=== PATIENT | male | born 1960 | race Caucasian/White ===

== ENCOUNTER 2017-08-07 07:32 | Inpatient (IN) | payer OTHER ==
[~2017-08-07] VITALS: Ht 180.3 cm; Wt 91.1 kg
--- NOTE | ~2017-08-07 | S ---
[facility] [place] [address] SURGICAL PATH RPT PROCEDURE Name: NATIVIDAD MORIN Room #: 444-P DIS IN M.R.#: [id number] Admission: 08/07/17 Date of : 64 Discharge: 08/11/17 Report #: [id number] Path Case #: [id number] PATHOLOGY REPORT COLLECTION DATE: 08/09/2017 RECEIVED DATE: 08/09/2017 SUBMITTING PHYS: Dr. Zac Anaya OTHER PHYS: Camilo Vickers Dr. SPECIMEN(S) RECEIVED: A.Gallbladder * * * * * * * * * * * * FINAL DIAGNOSIS: "Gallbladder," cholecystectomy: - Chronic cholecystitis. (CLW:mgr; 08/12/2017) PATHOLOGIST: Sonja Gonzalez M.D. REPORT ELECTRONICALLY SIGNED BY: Sonja Gnozalez M.D. DATE/TIME: 08/12/2017 14:25 * * * * * * * * * * * * GROSS PATHOLOGY: Received in formalin labeled "Natividad Morin and gallbladder," is a previously opened 6.7 x 2.4 x 1.0 cm, gallbladder with meadows smooth serosal surfaces. Opening the gallbladder reveals granular mucosa and an average wall thickness of up to 0.1 cm. Calculi not present and no masses are noted grossly. X Ray Technician sections from the body and fundus are submitted along with the proximal margin in cassette A1. (SWS; 08/09/2017) CLINICAL HISTORY: Gallbladder disease INITIAL CPT CODE(S): A; 24823 Professional services performed by [facility] at [facility] [address], [place] [address] Technical services performed by [facility] at [address] [place] [id number]. [facility] [address] [place] [address] SURGICAL PATH RPT PROCEDURE Name: NATIVIDAD MORIN Room #: 444-P [facility] IN .R.#: [id number] Admission: 08/07/17 Date of : 64 Discharge: 08/11/17 Report #: [id number] Path Case #: [id number] [facility] [address] [address] PHONE: [phone] DIRECTOR: Nabeel Ramsay M.D. * * * END OF REPORT * * *
--- NOTE | ~2017-08-07 | HC ---
[facility] [place] [address] CONSULTATION Name: NATIVIDAD LIAO Room #: 444-P ADM IN M.R.#: [id number] Admission: 08/07/17 Attend Phys: Vincent Diaz MD Discharge: Date of : 64 Report #: [id number] THIS REPORT FOR: //name// CC: Vincent Anaya DATE OF SERVICE: 08/07/2017 ATTENDING PHYSICIAN: Vincent Diaz MD CONSULTING PHYSICIAN: Zac Anaya MD REASON FOR CONSULTATION: Abdominal pain. HISTORY OF PRESENT ILLNESS: This is a 57-year-old male patient who was seen in the [place] emergency room with abdominal pain, nausea, vomiting and diarrhea. He had eaten pizza last night. He reports having had similar symptoms last week postprandially with bloating, diarrhea, nausea, vomiting, pain and "long belches." His symptoms last a couple days at the end of last week and improved; however, he has been eating soup since that time. After eating the pizza last night, his symptoms came back. He reports chills after he has episodes of nausea, vomiting, and diarrhea. He denies any sick contacts. PAST MEDICAL HISTORY: Significant for supraventricular tachycardia, hypertension, hyperlipidemia, asthma, and history of DVT. PAST SURGICAL HISTORY: Cardiac cath; denies abdominal operations. MEDICATIONS: Please see hospital chart for details. He takes omeprazole, Elavil, Cialis, Ventolin inhaler, aspirin, and Felicitas. ALLERGIES: ATORVASTATIN causes muscle pain. FAMILY HISTORY: Reviewed and noncontributory to this hospitalization. His father had a heart disease and sister has breast cancer. SOCIAL HISTORY: The patient denies use of tobacco or illicit drugs. He drinks alcohol on occasion. He works as a heating and cooling assistant facility manager and is accompanied by his . REVIEW OF SYSTEMS: As per history of present illness, in addition, GENERAL: The patient denies unintentional weight loss. Denies fever. Reports chills. HEENT: Denies changes in taste, vision, hearing, or smell. RESPIRATORY: Denies shortness of breath or COPD and has a history of asthma. [facility] [address] [place] [address] CONSULTATION Name: NATIVIDAD LIAO Room #: 444-P [facility] IN ..#: [id number] Admission: 08/07/17 Attend Phys: Vincent Diaz MD Discharge: Date of : 64 Report #: [id number] CARDIOVASCULAR: Denies chest pain or palpitations. GASTROINTESTINAL: As per history of present illness. Complains of abdominal cramping. GENITOURINARY: Denies dysuria, urgency, increased urinary frequency, or hematuria. MUSCULOSKELETAL: Denies myalgia, arthralgia or arthritis. NEUROLOGIC: Denies headaches, numbness, or tingling. PSYCHIATRIC: Denies depression, anxiety, or suicidal ideations. SKIN AND INTEGUMENTARY: Denies new skin lesions, rashes, or moles. ENDOCRINE: Denies polydipsia, polyuria, heat or cold intolerance. HEMATOLOGIC: Denies easy bleeding, bruising or anemia. All other review of systems is negative. PHYSICAL EXAMINATION: VITAL SIGNS: Temperature 98.3, blood pressure 149/97, pulse 103, and respirations 18. GENERAL: This is a 57-year-old male patient, in no acute distress, although he appears uncomfortable. HEENT: Atraumatic, normocephalic with moist mucosal membranes. Oropharynx is clear. He has no scleral icterus. NECK: Supple, no appreciable lymphadenopathy. Trachea is midline. CHEST: Clear bilaterally. No crackles or wheezes. CARDIOVASCULAR: Regular rate and rhythm. ABDOMEN: Soft, but diffusely tender to palpation with no rebound or guarding. His abdomen is distended. He has no palpable masses, no appreciable hernias. No incisional scars. GENITOURINARY: Normal external male genitalia. EXTREMITIES: No clubbing, cyanosis or edema. NEUROLOGIC: Cranial nerves 2-12 are grossly intact. PSYCHIATRIC: Normal mood and affect. SKIN AND INTEGUMENTARY: No acute inflammatory changes, rashes or lesions are present. LABORATORY DATA: CBC from this morning shows a white blood cell count of 14.1, hemoglobin 15.9, hematocrit 47.2 and platelets 329 with 84% segmented neutrophils. Electrolytes showed a sodium of 138, potassium 4.0, chloride 102, CO2 of 24, BUN 20, creatinine 1.1 and glucose 169 with normal liver function tests and a normal lipase. RADIOLOGIC STUDIES: Three-view KUB upright and AP of the chest showed fluid scattered throughout bowel consistent with ileus or enteritis. This was followed by a CT of the abdomen and pelvis with contrast. This showed changes consistent with intussusception on axial images; however, sagittal and coronal reconstructions could not confirm this. This was followed by a small-bowel series, which showed no evidence of small-bowel obstruction or definite [facility] [address] [place] [address] CONSULTATION Name: NATIVIDAD LIAO Room #: 444-P ADM IN M.R.#: [id number] Admission: 08/07/17 Attend Phys: Vincent Diaz MD Discharge: Date of : 64 Report #: [id number] intussusception. There was some delay in the passage of contrast into the mid to distal small bowel. IMPRESSION AND PLAN: This is a 57-year-old male patient with no previous abdominal surgical history who had an incidentally seen intussusception coinciding with an area where the abdominal pain is present. His followup x-rays showed no evidence for this. We discussed the pathophysiology and natural history of intussusception in adults as well as possible small-bowel obstruction. We also discussed the workup, treatment alternatives, and surgical options. The patient would benefit from decompression as he remains nauseated and has been vomiting. He will undergo an abdominal ultrasound to further evaluate his gallbladder as he has a history of chronic postprandial abdominal pain, nausea and vomiting while decompressed, but before the CT of the abdomen and pelvis with oral and IV contrast. Should he fail to resolve his symptoms, he may benefit from a diagnostic laparoscopy. This could also certainly represent delayed gastroenteritis or ileitis. Hopefully, his symptoms will resolve with decompression and bowel rest. The patient expressed understanding of the plan. I sincerely appreciate the opportunity to participate in the care of this patient and we will leave further recommendations and orders in the electronic medical record as appropriate. Thank you very much. <ELECTRONICALLY SIGNED> By: Zac Anaya MD, FACS 08/08/17 0821 1743 27 Zac Anaya MD, FACS /nt
[~2017-08-07 07:32] MED LIST: ALLEGRA ALLERG180 MG PO; AMITRIPTYLINE H25 M2 PO; ASPIR 8181 MG PO; AZELASTINE137 MCG/0. NASAL; BENAZEPRIL 10 M10 MG PO; CARTIA XT120 M1 PO; CIALIS20 MG PO; FENOFIBRATE160 MG PO; FLECAINIDE ACET50 M2 PO; OMEPRAZOLE40 MG PO; SUDAFED 12 HOU120 MG PO; VENTOLIN HFA 1818 GM INH; ZOCOR20 MG PO
[2017-08-07 07:33] VITALS: BP 123/89
[2017-08-07 07:58] LABS: HEMATOCRIT 47.2 % (42.0-52.0); HEMOGLOBIN 15.9 gm/dL (14.0-18.0); MCH 28.6 pg (26.0-34.0); MCHC 33.7 g/dL (28.0-37.0); MCV 84.9 fL (80.0-100.0); PLATELET COUNT 329 thou/uL (150-400); RBC 5.56 mil/uL (4.50-6.00); RDW 13.8 % (10.5-14.5); WBC 14.1 thou/uL (4.0-11.0)
[2017-08-07 07:59] LABS: MANUAL DIFF YES
[2017-08-07 08:06] LABS: CALCIUM 9.5 mg/dL (8.5-10.1); CREATININE 1.1 mg/dL (0.7-1.3)
[2017-08-07 08:11] LABS: ALBUMIN 4.3 g/dL (3.4-5.0); TOTAL BILIRUBIN 0.7 mg/dL (<0.1-1.0); TOTAL PROTEIN 7.9 g/dL (6.4-8.2)
[2017-08-07 08:58] LABS: ABSOLUTE NEUTROPHILS 11.8 thou/uL (1.4-8.2); TOTAL CELL COUNT 100
[2017-08-07 08:59] LABS: ANISOCYTOSIS SLIGHT
[2017-08-07 11:50] VITALS: BP 143/86
[2017-08-07 12:35] VITALS: BP 134/93
[2017-08-07 13:10] VITALS: BP 149/97
[2017-08-07 16:00] VITALS: BP 154/89
[2017-08-07 20:13] VITALS: BP 138/90
[2017-08-08 01:10] LABS: GLYCOHEMOGLOBIN (HGB A1C) 5.9 % (4.8-5.6)
[2017-08-08 03:53] VITALS: BP 106/65
[2017-08-08 03:54] LABS: CALCIUM 8.7 mg/dL (8.5-10.1); CREATININE 1.2 mg/dL (0.7-1.3); MAGNESIUM 1.9 mg/dL (1.8-2.4); POTASSIUM 3.8 mmol/L (3.5-5.1)
[2017-08-08 03:55] LABS: ABSOLUTE NEUTROPHILS 5.1 thou/uL (1.4-8.2); BASOPHILS 0.2 % (0.0-2.0); HEMATOCRIT 43.2 % (42.0-52.0); HEMOGLOBIN 14.4 gm/dL (14.0-18.0); LYMPHOCYTES 26.5 % (24.0-44.0); MCH 28.9 pg (26.0-34.0); MCHC 33.5 g/dL (28.0-37.0); MCV 86.2 fL (80.0-100.0); MONOCYTES 11.9 % (1.0-8.0); PLATELET COUNT 318 thou/uL (150-400); POLYS 54.4 % (36.0-66.0); RBC 5.01 mil/uL (4.50-6.00); RDW 14.1 % (10.5-14.5); WBC 9.3 thou/uL (4.0-11.0)
[2017-08-08 04:07] LABS: MANUAL DIFF NO
[2017-08-08 05:13] VITALS: BP 124/79
[2017-08-08 08:00] VITALS: BP 118/73
[2017-08-08 16:00] VITALS: BP 135/97
[2017-08-08 19:38] VITALS: BP 128/80
[2017-08-09 00:10] VITALS: BP 127/75
[2017-08-09 05:42] VITALS: BP 128/73
[2017-08-09 18:34] VITALS: BP 140/85
[2017-08-09 19:00] VITALS: BP 141/91
[2017-08-10 05:11] VITALS: BP 129/78
[2017-08-10 05:59] LABS: CALCIUM 8.5 mg/dL (8.5-10.1); CREATININE 1.1 mg/dL (0.7-1.3); POTASSIUM 3.5 mmol/L (3.5-5.1)
[2017-08-10 06:07] LABS: ABSOLUTE NEUTROPHILS 7.6 thou/uL (1.4-8.2); BASOPHILS 0.3 % (0.0-2.0); EOSINOPHILS 1.8 % (0.0-3.0); HEMATOCRIT 39.5 % (42.0-52.0); LYMPHOCYTES 15.7 % (24.0-44.0); MCH 28.6 pg (26.0-34.0); MCHC 32.9 g/dL (28.0-37.0); MCV 86.9 fL (80.0-100.0); MONOCYTES 8.9 % (1.0-8.0); PLATELET COUNT 275 thou/uL (150-400); POLYS 73.3 % (36.0-66.0); RBC 4.55 mil/uL (4.50-6.00); WBC 10.4 thou/uL (4.0-11.0)
[2017-08-10 06:17] LABS: MANUAL DIFF NO
[2017-08-10 08:00] VITALS: BP 149/84
[2017-08-10 16:00] VITALS: BP 136/79
[2017-08-10 20:12] VITALS: BP 104/61
[2017-08-11 03:31] VITALS: BP 126/83
[2017-08-11 05:51] LABS: ABSOLUTE NEUTROPHILS 5.6 thou/uL (1.4-8.2); BASOPHILS 0.6 % (0.0-2.0); EOSINOPHILS 6.5 % (0.0-3.0); HEMATOCRIT 35.4 % (42.0-52.0); HEMOGLOBIN 11.7 gm/dL (14.0-18.0); LYMPHOCYTES 19.1 % (24.0-44.0); MCH 28.3 pg (26.0-34.0); MCHC 32.9 g/dL (28.0-37.0); MONOCYTES 8.2 % (1.0-8.0); PLATELET COUNT 246 thou/uL (150-400); POLYS 65.6 % (36.0-66.0); RBC 4.11 mil/uL (4.50-6.00); RDW 13.8 % (10.5-14.5); WBC 8.6 thou/uL (4.0-11.0)
[2017-08-11 05:54] LABS: MANUAL DIFF NO
[2017-08-11 06:06] LABS: CALCIUM 8.3 mg/dL (8.5-10.1); POTASSIUM 3.1 mmol/L (3.5-5.1)
[2017-08-11 08:00] VITALS: BP 134/74
[2017-08-11 08:30] VITALS: BP 134/74
[2017-08-11 10:56] VITALS: BP 134/74
== END 2017-08-11 13:07 | disposition home or self-care (01) | DRG 418 ==
LOC: ER 07:32 → EROBS 10:13 → 4S 12:51
PROVIDERS: Emergency Medicine; Family Medicine; Nurse Practitioner; Surgery
DX: K80.50 Calculus of bile duct without cholangitis or cholecystitis without obstruction (principal); K56.609 Unspecified intestinal obstruction, unspecified as to partial versus complete obstruction; K56.1 Intussusception; I10 Essential (primary) hypertension; E78.5 Hyperlipidemia, unspecified; G89.29 Other chronic pain; I25.10 Atherosclerotic heart disease of native coronary artery without angina pectoris; E78.00 Pure hypercholesterolemia, unspecified; J45.909 Unspecified asthma, uncomplicated; Z86.718 Personal history of other venous thrombosis and embolism; Z88.8 Allergy status to other drugs, medicaments and biological substances; Z82.49 Family history of ischemic heart disease and other diseases of the circulatory system; Z80.3 Family history of malignant neoplasm of breast; Z79.899 Other long term (current) drug therapy
CPT/HCPCS: 10195; 50010; 50101; 50249; 50411; 50555; 50558; 50962; 51975; 52265; 53307; 54022; 54118; 55245; 55317; 56462; 56525; 56526; 62110; 62900; 70005

== ENCOUNTER 2020-11-01 10:19 | Inpatient (IN) | payer OTHER ==
[~2020-11-01] VITALS: Ht 180.3 cm; Wt 102.1 kg
--- NOTE | ~2020-11-01 | EMS ---
[address] [address] EMS Patient Care Report Name: NATIVIDAD LIAO Room #: 447-P ADM IN M.R.#: [id number] Admission: 11/01/20 Attend Phys: Azam Root MD Discharge: Date of : 64 Report #: [id number] THIS REPORT FOR: //name// Report Transmitted: 11/01/2020 15:21 EMS Care Summary [facility] MED-ACT Incident [id number] @ 11/01/2020 09:29 Incident Location [address] [place] [address] Patient ANNI LIAO Male, 60 Years 1960 Patient Address [address] [place] [address] Patient History Hypertension (HTN),Hyperlipidemia,Supraventricular Tachycardia (SVT), Patient Allergies Lipitor, Patient Medications Diltiazem, Aspirin, Amitriptyline, Benazepril, Rosuvastatin, Flecainide, Chief Complaint Ground Level Fall- Back Pain Disposition Transported No Lights/[place] Reason Traumatic Injury Transported To [facility] Narrative Paramedics requested to a 60yom patient that suffered a ground level fall at work. On arrival to the scene, the patient is found sitting in his office with his head in his arms. He has [employer] personnel at his side acquiring VS. They state that they have been having problems with their monitor and his [address] [address] EMS Patient Care Report Name: NATIVIDAD LIAO Room #: 447-P ADM IN [facility]#: [id number] Admission: 11/01/20 Attend Phys: Azam Root MD Discharge: Date of : 64 Report #: [id number] BP may not be accurate as it shows in the first set of VS in this report. He keeps his head in his arms, does not appear to be in acute distress, and responds to questions appropriately without delays or neurological speech deficits. Fire personnel state that the patient was helping move a heavy object when the object went off balance, knocking him down. He landed on his sacrum, did not hit his head, and did not lose consciousness. He denies dizziness, light-headedness, visual disturbances, sob, and chest pain prior to falling. He states that the pain is in his lumbar spine and his sacrum with no radiation or tenderness on palpation to his thoracic or cervical spine. The patient is able to stand and ambulate with two assist to the stretcher where he is restrained according to local protocol. In the ambulance, the patient is placed on the NiBP, SpO2, and cardiac monitoring for continuous monitoring during transport. A 12-lead ECG is performed with no acute abnormalities and is non diagnostic for cardiac involvement. Transport is initiated to the facility as requested by the patient. En route to the receiving facility, IV access is obtained. During transport, the patient states that he barely feels the injury when he is laying still and does not move. He develops no new signs or symptoms during transport. Biocom report is given to the receiving facility with all questions answered and no new orders received. On arrival to the receiving facility, the patient is escorted into ER , and is moved to the ED stretcher via draw sheet assist. Report is given to the RN at bedside who verbalizes no questions, comments, or concerns regarding prehospital care. Initial Vitals @09:46P: 82,SpO2: 96,SC Suspected: false @10:08P: 69,BP: 130/88,SpO2: 99, @10:14P: 80,BP: 151/109,SpO2: 98, @09:57P: 82,SpO2: 98, @10:16P: 77,R: 18,BP: 156/92,Pain: 1/10,GCS: 15,SpO2: 98,Revised Trauma: 12,SC Suspected: false @10:02P: 48,SpO2: 97, @09:45P: 82,R: 16,BP: 107/65,Pain: 4/10,GCS: 15,Temp: 98.7F,SpO2: 96,Revised Trauma: 12,SC Suspected: false @PTAP: 78,R: 18,BP: 76/40,GCS: 15,Revised Trauma: 11, Assessments @09:50MENTAL:Person Oriented,Time Oriented,Place Oriented,Event Oriented,SKIN:HEENT:Head/Face: No Abnormalities,Neck/Airway: No Abnormalities,LUNG SOUNDS:General: No Abnormalities,ABDOMEN:General: No Abnormalities,PELVIS//GI:No Abnormalities,EXTREMITIES:Capillary Refill: Left Upper: < 2 Sec,Left Arm: No Abnormalities,Right Arm: No Abnormalities,Left Leg: No Abnormalities,Right Leg: No Abnormalities,PULSE:Radial: 2+ Normal,NEURO:No Abnormalities, [address] [address] EMS Patient Care Report Name: NATIVIDAD LIAO Room #: 447-P [facility] IN M.R.#: [id number] Admission: 11/01/20 Attend Phys: Azam Root MD Discharge: Date of : 64 Report #: [id number] Impression Injury of Lower Back Procedures @09:4612-Lead ECGResponse: UnchangedSucceeded@09:50Saline Lock 10cc (20 ga) Site: Hand-LeftResponse: UnchangedSucceeded Timeline GEOTECHNICAL FIELD TECHNICIAN,BP: 76/40 M,PULSE: 78,RR: 18 R,SPO2: Ox,ETCO2: ,BG: ,PAIN: ,GCS: 15, 09:27,Call Received 09:27,Psap Call 09:29,Dispatched 09:30,En Route 09:37,On Scene 09:39,At Patient 09:45,BP: 107/65 M,PULSE: 82,RR: 16 R,SPO2: 96 Ox,ETCO2: ,BG: ,PAIN: 4,GCS: 15, 09:46,12-Lead ECG,Response: UnchangedSucceeded, 09:46,BP: / M,PULSE: 82,RR: R,SPO2: 96 Ox,ETCO2: ,BG: ,PAIN: ,GCS: , 09:50,Depart Scene 09:50,Saline Lock 10cc 20 ga Site: Hand-Left,Response: UnchangedSucceeded, 09:57,BP: / M,PULSE: 82,RR: R,SPO2: 98 Ox,ETCO2: ,BG: ,PAIN: ,GCS: , 10:02,BP: / M,PULSE: 48,RR: R,SPO2: 97 Ox,ETCO2: ,BG: ,PAIN: ,GCS: , 10:08,BP: 130/88 M,PULSE: 69,RR: R,SPO2: 99 Ox,ETCO2: ,BG: ,PAIN: ,GCS: , 10:14,BP: 151/109 M,PULSE: 80,RR: R,SPO2: 98 Ox,ETCO2: ,BG: ,PAIN: ,GCS: , 10:15,At Destination 10:16,BP: 156/92 M,PULSE: 77,RR: 18 R,SPO2: 98 Ox,ETCO2: ,BG: ,PAIN: 1,GCS: 15, 11:07,Call Closed Disclaimer v1.1 Copyright 2020 [employer] This EMS Care Summary contains data elements from the applicable legal record (which may be displayed differently). It is designed to provide pertinent information for the following purposes: continuity of care, clinical quality, and state data reporting. The complete legal record is available to ED staff and administrators of the receiving hospital in [employer] Patient Tracker. All data is provided "as is."
[2020-11-01 10:25] VITALS: BP 114/83
[2020-11-01 13:28] VITALS: BP 114/83
[2020-11-01 14:10] VITALS: BP 109/83
[2020-11-01 14:50] VITALS: BP 137/84
[2020-11-01] MEDS ORDERED: BENAZEPRIL 10 M10 MG PO (16:34)
[2020-11-01] MEDS ORDERED: FLECAINIDE ACET50 M1 PO (16:35)
[2020-11-01] MEDS ORDERED: EZETIMIBE10 MG PO (16:35)
[2020-11-01] MEDS ORDERED: VASCEPA1 GM PO (16:38)
[2020-11-01] MEDS ORDERED: DILTIAZEM 24HR120 M1 PO (16:38)
[2020-11-01] MEDS ORDERED: ROSUVASTATIN CA40 MG PO (16:39)
[2020-11-01] MEDS ORDERED: SEMPREX D PO (16:41)
[2020-11-01] MEDS ORDERED: FISH OIL 1,0001 EAC9 PO (16:42)
[2020-11-01] MEDS ORDERED: ASA81BEC PO (16:43)
[2020-11-01 20:46] VITALS: BP 140/84
--- NOTE | 2020-11-01 21:26 | NUR ---
PT CARE ASSUMED FROM THE ER AT 1445. A&Ox4. ADMISSION COMPLEETED AND ALL CONSENTS SIGNED. PT PREFFERS TO LAY FLAT ON BACK OR SIT UP. URINAL AT BED SITE. IV IS A FIELD STICK. PATENT NO EDEMA NO REDNESS, SALINE LOCKED. AT BED SIDE. DR. KC INFORMED THAT HIS PATIENT IS ADMITTED. PAIN CONTROLLED WELL WITH PAIN MEDICATION ON BOARD. FALL LPROTOCOL IN PLACE. CALL LIGHT IN REACH. DR. PARRISH WILL SEE PT IN THE AM. WILL NEED TO BE COVID SWABBED IF PROCEDURE NECESSARY. REPORT GIVEN TO CARIE CRAIG
--- NOTE | 2020-11-02 07:01 | NUR ---
ASSUMED PT CARE AT SHIFT CHANGE. PT IS A&OX4. PT HAS A LEFT HAND IV. I GAVE PT AN ICE PACK TO HELP WITH THE PAIN. PT IS USING HIS URINAL. PT IS ON ROOM AIR. PT IS BEDREST AND TOLERATING ORAL MEDICATION. FREQUENT CHECKS DONE ON PT. WILL PASS REPORT TO THE DAY NURSE.
[2020-11-02 08:26] VITALS: BP 131/92
[2020-11-02 10:01] LABS: HEMATOCRIT 44.5 % (42.0-52.0); HEMOGLOBIN 14.8 gm/dL (14.0-18.0); MCH 27.2 pg (26.0-34.0); MCHC 33.1 g/dL (28.0-37.0); MCV 82.1 fL (80.0-100.0); RBC 5.42 mil/uL (4.50-6.00); RDW 14.9 % (10.5-14.5)
[2020-11-02 10:17] LABS: CALCIUM 9.1 mg/dL (8.5-10.1); CREATININE 1.1 mg/dL (0.7-1.3); POTASSIUM 4.1 mmol/L (3.5-5.1)
[2020-11-02 10:20] LABS: TOTAL BILIRUBIN 0.7 mg/dL (0.2-1.0); TOTAL PROTEIN 7.3 g/dL (6.4-8.2)
[2020-11-02 10:38] LABS: PROTIME 10.3 Seconds (9.3-11.4)
[2020-11-02 12:52] VITALS: BP 139/87
--- NOTE | 2020-11-02 13:25 | NUR ---
ASSESSMENT: CM REVIEWED CHART AND SPOKE WITH PATIENT. PT IS ALERT AND ORIENTED X4. PT WAS ADMITTED DUE TO LUMBAR COMPRESSION FX AND IS TO GET KYPHO LATER TODAY. PT REPORTS LIVING IN A HOUSE WITH HIS . PT REPORTS A FEW STEPS TO ENTER THE HOME AND ABOUT 12 SHAllow LONG STEPS TO THE UPSTAIRS WITH A HANDRAIL. PT REPORTS HE IS NORMALLY FULLY INDEPENDENT WITH ADLS AND AMBULATION. PT DENIES HX OF HH. CM WILL CONTINUE TO FOLLOW TO ASSIST NEEDED.
[2020-11-02 16:39] VITALS: BP 145/90
--- NOTE | 2020-11-02 18:30 | NUR ---
PT ASSESSED AT START OF SHIFT. DR. KC IN EARLY TO SEE HIS PT. NEUROSURGERY CONSULTED AND SAW PT. DR. BRIDGES CONSULTED FOR KYPHOPLASTY AND PT WENT FOR PROCEDURE THIS AM AND RETURNED AT LUNCHTIME. PT STATES NO MORE PAIN. OUT OF BED W/ STANDBY TO BSC. SOME NAUSEA BUT RELIEVED W/ ZOFRAN AND WAS ABLE TO EAT AND DRINK. PLAN FOR THERAPY TO WORK W/ PT TOMORROW BEFORE DISCHARGE.
[2020-11-02 19:25] VITALS: BP 150/91
[2020-11-03 04:08] VITALS: BP 112/61
[2020-11-03 07:42] VITALS: BP 124/78
[2020-11-03] MEDS ORDERED: HYDROCODON-ACE1 EAC7 PO (08:06)
--- NOTE | 2020-11-03 08:27 | NUR ---
PER REPORT,PT WAS HAVING NAUSEA POST OP.PT WAS ABLE TO KEEP HIS FOOD DOWN AT HS.PT DENIED PAIN THE WHOLE SHIFT.URINAL AT BEDSIDE WITH GOOD OUTPUT.PT LOOKIG FORWARD TO BE DC'D TODAY AFTER THERAPY.REPORT TO AM NURSE.
[2020-11-03 10:22] VITALS: BP 124/78
[2020-11-03 10:42] VITALS: BP 124/78
--- NOTE | 2020-11-03 11:12 | NUR ---
DISCHARGE PAPERS REVIEWED WITH PATIENT SIGNED AND COPY IN CHART. IV ACSESS DCD. ALL BELONGINGS PACKED AND SENT WITH PATIENT. HERE TO TRANSPORT PATIENT HOME. PT THERAPY WORKED WITH PATIENT AND STATED HE WAS OKAY TO DISCHARGE TO HOME. DOCTOR CALLED PRN PAIN MED TO PATIENTS PHARMACY. PT W/O PAIN OR RESP DISTRESS AT DC .
[2020-11-03 11:16] VITALS: BP 124/78
--- NOTE | 2020-11-03 12:38 | NUR ---
on-going assessment: CM REVIEWED CHART AND SPOKE WITH PATIENT. PT HAS ORDERS TO DISCHARGE HOME TODAY WITH CLEARANCE OF PHYSICAL THERAPY. PT DOES NOT REQUIRE ANY EQUIPMENT FOR HOME AT THIS TIME. CM FAXED DISCHARGE PAPERWORK TO [employer] RESEARCH CLERK FOR WORK COMP CASE PER HER REQUEST. PT REPORTS NO FURTHER NEEDS FROM CM. PTS IS PRESENT TO TAKE HIM HOME.
== END 2020-11-03 14:17 | disposition home or self-care (01) | DRG 516 ==
LOC: ER 10:19 → EROBS 12:32 → 4S 12:32
PROVIDERS: Nuclear Medicine Nuclear Cardiology; ADMIT Surgery; ATTEND Surgery
PROC: 0QU03JZ Supplement Lumbar Vertebra with Synthetic Substitute, Percutaneous Approach (ICD-10-PCS; principal; 2020-11-02)
PROC: 0QS03ZZ Reposition Lumbar Vertebra, Percutaneous Approach (ICD-10-PCS; principal; 2020-11-02)
DX: S32.019A Unspecified fracture of first lumbar vertebra, initial encounter for closed fracture (principal); I47.1 Supraventricular tachycardia; I10 Essential (primary) hypertension; E78.00 Pure hypercholesterolemia, unspecified; Z20.822 Contact with and (suspected) exposure to COVID-19; I25.10 Atherosclerotic heart disease of native coronary artery without angina pectoris; J45.909 Unspecified asthma, uncomplicated; E78.5 Hyperlipidemia, unspecified; W18.39XA Other fall on same level, initial encounter; Y93.89 Activity, other specified; Y92.89 Other specified places as the place of occurrence of the external cause; Y99.8 Other external cause status; Z86.718 Personal history of other venous thrombosis and embolism; Z88.8 Allergy status to other drugs, medicaments and biological substances; Z90.49 Acquired absence of other specified parts of digestive tract; Z28.21 Immunization not carried out because of patient refusal
CPT/HCPCS: 10195